=== PATIENT | female | born 1940 | race Caucasian/White ===

== ENCOUNTER → 2021-01-23 | Outpatient (CLI) | payer MEDICARE ==
[~2021-01-23] MED LIST: ACYCLOVIR800 MG PO; ATORVASTATIN CA20 MG PO; ECOTRIN81 MG PO; GLUCOPHAGE500 MG PO; GLUCOTROL5 MG PO; HYDROCHLOROTH12.5 M1 PO; L-LYSINE500 M1 PO; LISINOPRIL20 MG PO; MULTIPLE VITAM1 EACH PO; OCUVITE WITH L1 EACH PO; PROBIOTIC DIGE1 EACH PO; SYNTHROID25 MCG PO; VITAMIN B-122500 MCG SL; VITAMIN D325 MC6 PO
== END ==
LOC: KOH-I 12:32
DX: R05 Cough (principal)
CPT/HCPCS: 71046

== ENCOUNTER → 2021-05-31 | Outpatient (CLI) | payer MEDICARE | LOC: MAMO 15:21 | DX: Z12.31 Encounter for screening mammogram for malignant neoplasm of breast (principal) | CPT/HCPCS: 77063; 77067 ==